=== PATIENT | female | born 1960 | race Caucasian/White ===

== ENCOUNTER 2016-07-26 10:05 | Day surgery (SDC) | payer OTHER ==
[~2016-07-26] VITALS: Ht 165.1 cm; Wt 79.5 kg
[2016-07-26 11:14] VITALS: Ht 165.1 cm; Wt 79.5 kg
[2016-07-26] MEDS ORDERED: AMLO5TAB4 PO (11:18)
[2016-07-26] MEDS ORDERED: LOSARTAN PO (11:18)
[2016-07-26] MEDS ORDERED: OMEP20CA16 PO (11:18)
[2016-07-26 11:57] VITALS: BP 118/66; PULSE 78; RESP 14
[2016-07-26 12:55] VITALS: BP 110/66; PULSE 78; RESP 12
--- NOTE | 2016-07-26 12:55 | GILP ---
DATE OF PROCEDURE: NAME OF PROCEDURES: 1. Esophagogastroduodenoscopy and biopsy. 2. Colonoscopy. SURGEON: Amy Garg MD PREOPERATIVE DIAGNOSES: 1. Abdominal pain. 2. History of intestinal metaplasia with gastritis. 3. Screening colonoscopy. POSTOPERATIVE DIAGNOSES: 1. Gastritis with nodules in the gastric antrum and biopsies were taken for histopathology. 2. Colonoscopy all the way to the cecum. 3. Internal hemorrhoids. 4. No colon neoplasm was identified. INDICATION FOR THE PROCEDURE: Ms. Allison Wooten is a 56-year-old female patient who had upper abdominal pain not responding to therapy. The patient had a history of gastritis with intestinal me taplasia. She also needed screening colonoscopy. The procedures and possible complications were well explained to the patient. She understood and co nsented to the procedures. DESCRIPTION OF PROCEDURE: Under the influence of fentanyl and Versed, the gastroscope was carefully introduced into the esophagus and under direct vision it was advanced to the stomach and through th e pylorus, into the duodenal bulb and descending duodenum. FINDINGS: ESOPHAGUS: The mucosa was normal. STOMACH: The patient had gastritis with gastric nodules in the antrum and biopsies were taken for h istopathology. DUODENUM: Normal. The colonoscope was carefully introduced in the rectum and under direct vision it was advanced all t he way to the cecum. FINDINGS: The patient had internal hemorrhoids. No colon neoplasm was identified. The patient tolerated the procedures very well and there was no complication from the procedures. A t the end of the procedures she was awake with stable vital signs and she was discharged home to the care of her family. IMPRESSION: Please see postoperative diagnoses. PLAN: 1. Continue omeprazole. 2. Add Zantac 300 mg p.o. at bedtime. 3. Await histopathology report. 4. Next screening colonoscopy in 10 years. Dictated By: AMY JEWELL/GEORGE Conf#: [id number] DID#: [id number]
[2016-07-26] MEDS ORDERED: MIDAZOLAM 1 MG/ML 2 ML INJ ONE ×2 (13:19→13:20)
[2016-07-26] MEDS ORDERED: FENTAnyl 50 MCG/ML VIAL ONE (13:19)
== END 2016-07-26 15:22 | disposition home or self-care (01) ==
LOC: GIL 10:05
PROVIDERS: ATTEND Internal Medicine Gastroenterology
DX: Z12.11 Encounter for screening for malignant neoplasm of colon (principal); K29.30 Chronic superficial gastritis without bleeding; K64.8 Other hemorrhoids; I10 Essential (primary) hypertension
CPT/HCPCS: 43239; 45378; 88305; 88312; J2250; J3010; Z7610